=== PATIENT | female | born 1995 | race Hispanic/Latino ===

== ENCOUNTER 2016-04-01 19:41 | Emergency (ER) | payer OTHER ==
[~2016-04-01] VITALS: Ht 149.9 cm; Wt 48.1 kg
[2016-04-01] MEDS ORDERED: KETOROLAC 60 MG/2 ML (TORADOL) VIAL IM ONE (20:15)
--- NOTE | 2016-04-01 21:46 | NUR ---
CHECKED PT AND SHE SAID PAIN WAS GONE AT THIS TIME
[2016-04-01 22:15] VITALS: BP 120/73
== END 2016-04-01 22:16 | disposition home or self-care (01) ==
LOC: ED 19:47
DX: M25.561 Pain in right knee (principal)
CPT/HCPCS: 73562; 96372; 99283; J1885

== ENCOUNTER → 2016-05-16 | Outpatient (CLI) | payer OTHER ==
[2016-05-16 13:52] VITALS: BP 122/67
== END ==
LOC: MHUC 13:22
PROVIDERS: ATTEND Physician Assistant
DX: N30.01 Acute cystitis with hematuria (principal)
CPT/HCPCS: 81002; 99213